=== PATIENT | female | born 1985 | race Caucasian/White ===

== ENCOUNTER → 2016-10-20 | Outpatient (CLI) | payer OTHER | LOC: FIMAGING 07:27 | PROVIDERS: ATTEND Obstetrics & Gynecology | DX: Z34.02 Encounter for supervision of normal first pregnancy, second trimester (principal); Z3A.20 20 weeks gestation of pregnancy ==

== ENCOUNTER 2017-02-25 12:20 | Inpatient (IN) | payer OTHER ==
[2017-02-25] MEDS ORDERED: TERBUTALINE SULFATE 1 MG/ML VIAL IV PRN (13:34)
[2017-02-25] MEDS ORDERED: LR 1,000 ML IV PRN (13:34)
[2017-02-25] MEDS ORDERED: OXYTOCIN/RINGERS LACTATE 1,000 ML IV PRN (13:34)
[2017-02-25] MEDS ORDERED: EPSOM SALT 454 GM TP PRN (13:34)
[2017-02-25] MEDS ORDERED: AMPICILLIN SODIUM 2 GM in NS 100 ML IV ONE (13:34)
[2017-02-25] MEDS ORDERED: OLIVE OIL 118 ML BTL MISC PRN (13:34)
--- NOTE | 2017-02-25 13:57 | GHP ---
[f rep st] PREOP HISTORY AND PHYSICAL DATE OF ADMISSION: 02/25/2017 ADMITTING DIAGNOSIS: Intrauterine at 37 and 6/7 weeks' gestation, in active labor. HISTORY OF PRESENT ILLNESS: The patient is a 31-year-old, 1, para 0, with a last menstrual period of 06/05/2016 and an EDC of 03/12/2017, which was confirmed by a first-trimester ultrasound. The patient has had good care beginning at [facility] but transferring to [facility] at 27 weeks' gestation and has no significant risk factors. She had recently been monitored for borderline oligohydramnios on an ultrasound performed at 36 weeks secondary to size less than dates. The baby was estimated weight to be 42nd percentile; however, the VONDA was borderline at 6.97 cm. The patient was monitored closely, worked on aggressive p.o. hydration, and her most recent VONDA was 8. She was being followed closely for this. Other than that, no significant issues in this . She began having contractions on the evening of the , which increased overnight and became extremely painful in the morning of the . On assessment here in labor and delivery, heart tones are in the 140s, reactive, moderate variability, category 1. She is curly every 2-3 minutes, and her cervix is 6-7, 90%, and 0 station. She is intact. The patient is also GBS positive. PAST OBSTETRICAL HISTORY: The patient has no significant past obstetrical history. This is her first . PAST GYNECOLOGICAL HISTORY: She has a normal menstrual triad, menarche at age 13, interval every 28 days, length 3-5 days. She had a sure and regular last menstrual period. She had no history of any abnormal Paps or STDs. She has used oral contraceptive pills in the past PAST MEDICAL HISTORY: She has no significant medical history. PAST SURGICAL HISTORY: Only significant for a tonsillectomy. ALLERGIES: She is allergic to codeine and has a childhood reaction, she does not remember her MEDICATIONS: Include vitamins with DHA. LABS: She is A positive, antibody negative, RPR nonreactive, rubella immune, hepatitis negative, HIV negative. Cystic fibrosis, SMA, fragile X negative. Pap normal. Gonorrhea and chlamydia normal. Verifi normal. Single marker AFP negative. 1-hour GTT 89. GBS is positive. REVIEW OF SYSTEMS: Negative except for labor contractions as above and now having some bloody show. SOCIAL HISTORY: She is . She lives with her , Jose Luis. She works as a web site administrator. She denies tobacco, alcohol, and drug use. FAMILY HISTORY: Mother has thyroid disease and had breast cancer, as well as her maternal grandmother had breast cancer in her 60s. Nothing else significant. OBJECTIVE: VITAL SIGNS: Afebrile. Vital signs are stable. heart tones 140s, reactive, moderate variability, category 1. Curly every 2-3 minutes. Again, cervix 6-7, 90%, 0 station and intact. ASSESSMENT AND PLAN: 31-year-old, 1, para 0, at 37 and 6/7 weeks' gestation in active labor. The patient will be admitted for active labor management. Will be started on ampicillin for GBS prophylaxis. The patient desires to have natural pain relief methods and will monitor her closely. /[id number]/MODL MTDD
[2017-02-25] MEDS ORDERED: OXYTOCIN 20 UNIT in LR 1,000 ML IV PRN (14:00)
[2017-02-25 14:16] LABS: ABSOLUTE IMMATURE GRANULOCYTES 0.17 10^3/uL (0.00-0.10); ADD DIFF? NO; ADD MORPH? NO; ADD SCAN? NO; ATYPICAL LYMPHOCYTE FLAG 0 (0-99); FRAGMENT RBC FLAG 0 (0-99); HEMATOCRIT 40.7 % (38.0-47.0); HEMOGLOBIN 14.2 g/dL (12.6-16.3); LEFT SHIFT FLG 0 (0-99); LIPEMIA HEMOLYSIS FLAG 90 (0-99); MEAN CELL HEMOGLOBIN 30.9 pg (27.9-34.1); MEAN CELL HEMOGLOBIN CONCENTR. 34.9 g/dL (32.4-36.7); MEAN CELL VOLUME 88.7 fL (81.5-99.8); MEAN PLATELET VOLUME 10.4 fL (8.7-11.7); PLATELET CLUMPS FLAG 0 (0-99); PLATELET COUNT 244 10^3/uL (150-400); RED BLOOD CELL COUNT 4.59 10^6/uL (4.18-5.33); RED CELL DISTRIBUTION WIDTH 12.8 % (11.5-15.2)
[2017-02-25] MEDS ORDERED: LIDOCAINE 1% 300 MG/30 ML SDV ONE (14:42)
[2017-02-25] MEDS ORDERED: OLIVE OIL 118 ML BTL ONE (14:42)
[2017-02-25] MEDS ORDERED: OXYTOCIN 10 UNIT/ML VIAL ONE (14:43)
[2017-02-25] MEDS ORDERED: MISOPROSTOL 200 MCG TAB ONE (14:43)
[2017-02-25] MEDS ORDERED: AMMONIA AROMATIC 1 EACH AMP IH ONE (14:43)
[2017-02-25] MEDS ORDERED: TERBUTALINE SULFATE 1 MG/ML VIAL ONE (14:43)
[2017-02-25] MEDS ORDERED: AMPICILLIN SODIUM 1 GM in NS 100 ML IV SCH (17:36)
[2017-02-25] MEDS ORDERED: HYDROCORTISONE 0.5% CREAM TP PRN (17:55)
[2017-02-25] MEDS ORDERED: ACETAMINOPHEN 325 MG TAB PO PRN (17:55)
[2017-02-25] MEDS ORDERED: SIMETHICONE 80 MG TAB CHEW PO PRN (17:55)
[2017-02-25] MEDS ORDERED: HYDROCODONE/APAP 5/325 TAB PO PRN (17:55)
--- NOTE | 2017-02-25 17:59 | OBDEL ---
Info Type: Vaginal Presentation at Delivery: Vertex L&D Analgesia/Anesthesia Type: Local (1 % lidocaine) GBS+: Yes Antibiotic Used for + GBS: Ampicillin Intrapartum Medications: Generic Name Dose Route Start Last Admin Trade Name Ileana PRN Reason Stop Dose Admin Ampicillin Sodium 1 gm/ Sodium 100 mls @ 200 mls/hr 02/25/17 17:36 02/25/17 17:39 Chloride IV 03/27/17 17:35 Not Given Q4H SUSAN Protocol Discontinued Medications Generic Name Dose Route Start Last Admin Trade Name Ileana PRN Reason Stop Dose Admin Ampicillin Sodium 2 gm/ Sodium 110 mls @ 220 mls/hr 02/25/17 13:34 02/25/17 14:03 Chloride IV 02/25/17 14:03 110 mls ONCE ONE Administration Protocol Oxytocin 20 unit/ Lactated 1,002 mls @ 150 mls/hr 02/25/17 14:00 02/25/17 17: 35 Ringer's IV 1,002 mls PRN PRN Administration Post-pardum bleeding Indications for Delivery: Spontaneous Labor Vaginal Delivery - Delivery Provider Delivery Physician/CNM: Ayaka Serrato - Labor and Delivery Onset of Contractions Date: 02/25/17 Onset of Contractions Time: 10:30 Onset of Contractions Type: Spontaneous Rupture of Membranes Date: 02/25/17 Rupture of Membranes Time: 16:15 Rupture of Membranes Type: Artificial Amniotic Fluid Color: Clear Dilation Complete Date: 02/25/17 Dilation Complete Time: 16:36 Placenta Delivery Date: 02/25/17 Placenta Delivery Time: 17:32 Total Hours of Labor: 7 Non-surgical Procedures: Amniotomy Laceration: Other (Specify) (B labial) Repair: 3-0, Vicryl Vaginal Sponge Count Correct: Yes Vaginal Needle Count Correct: Yes Vaginal Sweep Performed: Yes EBL: 350 Delivery Events: Nuchal Cord (loose x 1) - Medications Labor Augmentation/Induction Methods Used: None Data Tobar Delivery Date: 02/25/17 Delivery Time: 17:27 KEN: 03/12/17 Gestational Age: 37 week(s) and 6 day(s) Sex of Infant: Male Score (1 Min): 9 Score (5 Min): 9 ICD10 Worksheet Patient Problems: Problems Problem Status Onset GBS (group B Streptococcus carrier), +RV culture, currently Acute (spontaneous vaginal delivery) Acute - ICD10 Problem Qualifiers (1) (spontaneous vaginal delivery) (2) GBS (group B Streptococcus carrier), +RV culture, currently
[2017-02-25] MEDS: IBUPROFEN 600 MG TAB PO PRN (19:30)
[2017-02-26] MEDS: IBUPROFEN 600 MG TAB PO PRN ×3 (01:28→21:11)
[2017-02-26] MEDS: DOCUSATE SODIUM 100 MG CAP PO PRN ×2 (08:22→21:11)
[2017-02-26 09:51] VITALS: O2SAT 96
--- NOTE | 2017-02-26 09:52 | OBPP ---
Progress Note Assessment/Plan: Assessment: 31 yo PPD#1 s/p doing well. Plan: Routine PP care. PP anemia, will start PO iron supplementation. 02/26/17 09:49 Subjective/ Course: 02/26/17 09:50 Lorenza is doing well. She denies significant faintness or weakness. She is . She denies significant pain and reports minimal lochia. She is voiding without difficulty. Objective: 02/26/17 05:10 Patient ABO/Rh A POSITIVE 02/25/17 13:59 Temp Pulse Resp BP Pulse Ox 36.4 C 79 20 113/71 95 02/25/17 22:45 02/25/17 22:45 02/25/17 22:45 02/25/17 22:45 02/25/17 22:45 Uterine Position/Fundal Height: Umbilicus -2, Midline Physical Exam - Physical Exam Cardiac/Chest: regular rate, rhythm Abdomen: normal bowel sounds, soft Extremities: normal inspection Skin: normal color, warm/dry Neuro/Psych: no motor/sensory deficits, alert, normal mood/affect, oriented x 3
[2017-02-26 20:21] VITALS: RESP 16
[2017-02-27] MEDS: IBUPROFEN 600 MG TAB PO PRN (08:04)
[2017-02-27] MEDS: DOCUSATE SODIUM 100 MG CAP PO PRN (08:04)
--- NOTE | 2017-02-27 08:09 | OBPP ---
Progress Note Assessment/Plan: Assessment:nipples intact pain well managed well Voiding without difficulties perineum approximated vs wnl ff@u scant rubra lochia Plan:discharge to home with instructions depression, ss infection, bleeding patter, pain management. exercise, rest, continue PNV , 4 week and 6 week check 02/27/17 08:07 Subjective/ Course: Denies difficulties. PAin well managed. Perineum approximated. Doing well 02/26/17 09:50 Lorenza is doing well. She denies significant faintness or weakness. She is . She denies significant pain and reports minimal lochia. She is voiding without difficulty. 02/27/17 08:06 Doing well denies difficulties. Voiding without complications. Objective: 02/26/17 05:10 Patient ABO/Rh A POSITIVE 02/25/17 13:59 Temp Pulse Resp BP Pulse Ox 37.4 C 76 16 98/59 L 96 02/26/17 20:00 02/26/17 20:00 02/26/17 20:00 02/26/17 20:00 02/26/17 20:00 Uterine Position/Fundal Height: At Umbilicus Uterine Tone: Firm Physical Exam - Physical Exam General Appearance: WD/WN, alert, no apparent distress Abdomen: other (ff@u/ scant rubra lochia, perineum approximated) Extremities: normal range of motion, Grayson's sign (negative bilaterally) DTR- Lower Extremities: Knee (R): 1+ (no clonus), Knee (L): 1+ Skin: normal color, warm/dry Neuro/Psych: no motor/sensory deficits, alert, normal mood/affect, oriented x 3
--- NOTE | 2017-02-27 08:11 | OBGCSDC ---
General Delivery Information - General Info : 1 Para: 1 Abortions: 0 Type: Vaginal L&D Analgesia/Anesthesia Type: Local Admission Date: 02/25/17 Labs: Patient ABO/Rh A POSITIVE 02/25/17 13:59 Hct 30.8 % (38.0-47.0) L 02/26/17 05:10 - Hospital Course Antepartum: 02/27/17 08:09 GBS positive transfer of care at 27 weeks : Denies difficulties. PAin well managed. Perineum approximated. Doing well 02/26/17 09:50 Lorenza is doing well. She denies significant faintness or weakness. She is . She denies significant pain and reports minimal lochia. She is voiding without difficulty. 02/27/17 08:06 Doing well denies difficulties. Voiding without complications. Vaginal - Delivery Provider Delivery Physician/CNM: Ayaka Serrato - Diagnosis Labor: Spontaneous Rupture of Membranes Type: Artificial Amniotic Fluid Color: Clear Laceration: Other (Specify) (B labial) Repair: 3-0, Vicryl Delivery Events: Nuchal Cord (loose x 1) - Procedures Non-surgical Procedures: Amniotomy - Delivery Non-surgical Procedures: Amniotomy EBL: 350 Data Tobar Delivery Date: 02/25/17 Delivery Time: : KEN: 03/12/17 Gestational Age: 38 week(s) and 1 day(s) Sex of : Male Weight (gm): 0 g Score (1 Min): 9 Score (5 Min): 9
[2017-02-27] MEDS ORDERED: IRON POLYSAC/IRON HEME 28 MG TAB PO SCH (09:00)
[2017-02-27 09:38] VITALS: BP 97/67; PULSE 67; TEMP 97.3
== END 2017-02-27 11:19 | disposition home or self-care (01) | DRG 775 ==
LOC: FLD 12:20 → INTOOBSV 12:20 → OBSVTOIN 14:01 → FOB 20:53
PROVIDERS: ADMIT Obstetrics & Gynecology; ATTEND Obstetrics & Gynecology
PROC: 10E0XZZ Delivery of Products of Conception, External Approach (ICD-10-PCS; principal; 2017-02-25)
PROC: 0HQ9XZZ Repair Perineum Skin, External Approach (ICD-10-PCS; principal; 2017-02-25)
DX: O90.81 Anemia of the puerperium (principal); O70.0 First degree perineal laceration during delivery; O99.820 Streptococcus B carrier state complicating pregnancy; O69.81X0 Labor and delivery complicated by cord around neck, without compression, not applicable or unspecified; Z3A.37 37 weeks gestation of pregnancy; Z37.0 Single live birth
CPT/HCPCS: J0290; J3105

== ENCOUNTER → 2017-03-08 | Outpatient (CLI) | payer OTHER | LOC: FLACT 13:36 → EDSTATUS 13:37 → FLACT 13:38 | PROVIDERS: ATTEND Obstetrics & Gynecology | DX: O92.5 Suppressed lactation (principal) | CPT/HCPCS: G0463 ==

== ENCOUNTER → 2017-04-05 | Outpatient (CLI) | payer OTHER | LOC: FLACT 12:51 | PROVIDERS: ATTEND Obstetrics & Gynecology | DX: O92.29 Other disorders of breast associated with pregnancy and the puerperium (principal) | CPT/HCPCS: G0463 ==